=== PATIENT | female | born 1935 | race Caucasian/White ===

== ENCOUNTER → 2018-12-16 | Outpatient (CLI) | payer MEDICARE, OTHER ==
--- NOTE | 2018-12-16 14:41 | DIREP ---
PROCEDURE:US DOPPLER CAROTID BILATERAL COMPARISON:[facility], [place], US DOPPLER CAROTID BILATERAL, 03/03/2017, 09:42 AM. INDICATIONS:CAROTID BRUIT TECHNIQUE:Sonographic evaluation of carotid arteries was performed together with grayscale, color-flow, and spectral analysis. FINDINGS: PEAK FLOW VELOCITIES (cm/sec) RIGHT CCA: PROX:95.8 cm/s MID:95.8 cm/s DIST:99.7 cm/s RIGHT ICA: PROX:67.0 cm/s MID:Not obtained, tortuous DIST:53.1 cm/s RIGHT ECA:91.7 cm/s RIGHT ICA/CCA:0.7 RIGHT VERTEBRAL:22.5 cm/s; Retrograde flow or the waveform was obtained on a vein (spectral is equivocal). IMAGES:There is mild plaque. LEFT CCA: PROX:56.3 cm/s MID:34.9 cm/s DIST:66.8 cm/s LEFT ICA: PROX:75.3 cm/s MID:Not obtained, tortuous DIST:83.4 cm/s LEFT ECA:127.3 cm/s LEFT ICA/CCA:1.2 LEFT VERTEBRAL:62.3 cm/s; Antegrade IMAGES:There is mild plaque. CONCLUSION: Less than 50% stenosis in the bilateral extracranial internal carotid arteries. Possible retrograde flow in the right vertebral artery versus inadvertent measurement on a vein, as above. On prior study, flow was antegrade in the right vertebral artery. The spectral tracing is equivocal but suspicious that venous acquisition was performed. Diameter Stenosis (%)ICA Peak Systolic Velocity (cm/s)ICA/CCA RatioNormal<125<2.0<50<125<[id number]>2-470 to near occlusion>230>4J Ultrasound Med 2005; 24:[id number] Dictated by: JODEE Physician on 12/16/2018 at 11:04 AM ac
== END | disposition home or self-care (01) ==
LOC: RAD 08:33
PROVIDERS: ATTEND Specialist
DX: I65.23 Occlusion and stenosis of bilateral carotid arteries (principal)
CPT/HCPCS: 93880